=== PATIENT | male | born 1945 | race Caucasian/White ===

== ENCOUNTER → 2017-06-13 | Day surgery (SDC) | payer MEDICARE, BC ==
[~2017-06-13] MED LIST: ACTOS15 MG PO; ASPIRIN81 M1 PO; ASPIRIN81 M2 PO; CENTRUM SILVER PO; COUMADIN5 MG PO; FISH OIL 1,0001 CA2 PO; GLUCOSAMINE500 M1 PO; GLUCOTROL PO; JENTADUETO 2.51 EAC1 PO; LIPITOR40 MG PO; LOVENOX100 MG/ML INJ; METOPROLOL SUCC25 MG PO; METOPROLOL SUCC50 MG PO; MICRONASE5 M2 PO; NORVASC PO; ONGLYZA2.5 MG PO; PLAVIX PO; PRAVASTATIN SOD40 MG PO; TOPROL XL50 MG PO; TRICOR134 MG PO; TRILIPIX135 MG PO
--- NOTE | ~2017-06-13 | OR ---
Unit #: [id number] #: [id number] Patient: KONRAD ARRIAGA JR [id number] [address] [id number] O MR#: [id number] NAME: KONRAD ARRIAGA JR ROOM: Date of Procedure: 06/13/2017 Admission Date: 06/13/2017 Surgeon: Arnulfo Gillis M.D. : 1945 Attending Physician: Arnulfo Gillis M.D. OPERATIVE REPORT PROCEDURES PERFORMED Colonoscopy with biopsies and removal of polyp. INDICATIONS FOR PROCEDURE A 72-year-old gentleman with average risk for colorectal cancer. MEDICATIONS Monitored anesthesia. POSTOPERATIVE FINDINGS 1. 3 mm sigmoid colon polyp, removed using biopsy forceps. 2. Rest of the colon exam to cecum was normal. 3. Good prep. PLAN Repeat colonoscopy in 5 years if adenomatous. DESCRIPTION OF PROCEDURE The patient was explained of the procedure, risks, and benefits along with risks and benefits of anesthesia. He was brought to the endoscopy room. Propofol anesthesia was given. Rectal exam was done, which was normal. Colonoscope was lubricated, passed up the rectum, advanced under direct vision all the way to the cecum. Cecum was identified by ileocecal valve and appendiceal orifice. I then started to pull the scope out carefully looking. Small polyp in sigmoid colon was removed using biopsy forceps. Rest of the mucosa was normal. Internal hemorrhoids noted. Gently, the scope was pulled out. He tolerated it well. Dictated by... Srini Zafar/edis TD: 06/13/2017 18:27 JOB #: [id number] CC: Brett Dupree M.D. Unit #: [id number] #: [id number] Patient: KONRAD ARRIAGA JR OPERATIVE REPORT Page 1 of 1 X Arnulfo Gillis MD X PROCEDURE OPERATIVE NOTE
== END | disposition home or self-care (01) ==
LOC: COPS 07:57
DX: Z12.11 Encounter for screening for malignant neoplasm of colon (principal); K63.5 Polyp of colon; E11.9 Type 2 diabetes mellitus without complications; I10 Essential (primary) hypertension; Z86.718 Personal history of other venous thrombosis and embolism; Z85.46 Personal history of malignant neoplasm of prostate; Z79.82 Long term (current) use of aspirin; Z79.899 Other long term (current) drug therapy; Z79.84 Long term (current) use of oral hypoglycemic drugs; Z95.5 Presence of coronary angioplasty implant and graft; Z90.79 Acquired absence of other genital organ(s); Z98.890 Other specified postprocedural states
CPT/HCPCS: 88305; J0290; J1580